=== PATIENT | female | born 1940 | race Caucasian/White ===

== ENCOUNTER 2021-08-31 01:38 | Inpatient (IN) | payer OTHER ==
[~2021-08-31] VITALS: Ht 157.5 cm; Wt 55.5 kg
[~2021-08-31 01:38] MED LIST: Aspir 8181 MG PO; CLOP75 PO; Folbee Plus Tabl5 MG PO; METO25ER PO; METO50 PO; NITR.4SL SL
[2021-08-31 02:04] LABS: BASOPHILS ABSOLUTE AUTO 0.04 K/mm3 (0.00-0.23); BASOPHILS PERCENT AUTO 0 % (0-2); EOSINOPHILS ABSOLUTE AUTO 0.07 K/mm3 (0.00-0.68); EOSINOPHILS PERCENT AUTO 1 % (0-6); Hematocrit 35.2 % (33.0-51.0); Hemoglobin 11.6 g/dL (11.5-16.0); IMMATURE GRAN ABSOLUTE AUTO 0.06 K/mm3 (0.00-0.10); IMMATURE GRAN PERCENT AUTO 1 % (0-1); LYMPHOCYTES ABSOLUTE AUTO 1.01 K/mm3 (0.84-5.20); LYMPHOCYTES PERCENT AUTO 9 % (21-46); MONOCYTES ABSOLUTE AUTO 0.88 K/mm3 (0.16-1.47); MONOCYTES PERCENT AUTO 8 % (4-13); Mean Corpuscular Volume 91 fL (80-100); Mean Platelet Volume 11.7 fL (9.1-12.4); NEUTROPHILS ABSOLUTE AUTO 9.63 K/mm3 (1.96-9.15); NEUTROPHILS PERCENT AUTO 83 % (41-73); Platelet Count 278 K/mm3 (150-400); Red Blood Cell Count 3.87 M/mm3 (3.80-5.20); White Blood Cell Count 11.69 K/mm3 (4.00-11.30)
[2021-08-31 02:25] LABS: Alanine Aminotransfer (ALT/SGP 8 U/L (12-78); Albumin, Blood 2.9 g/dL (3.4-5.0); Albumin/Globulin Ratio 0.7 (0.8-1.8); Alk Phos 70 U/L (50-136); Anion Gap 11 mmol/L (6-16); Aspartate Aminotrans (AST/SGOT 11 U/L (12-37); Bilirubin, Total 0.6 mg/dL (0.1-1.0); Blood Urea Nitrogen 18 mg/dL (8-24); CO2, Blood 26 mmol/L (21-32); Calcium, Blood 8.7 mg/dL (8.5-10.1); Chloride, Blood 98 mmol/L (98-108); Creatinine, Blood 0.64 mg/dL (0.40-1.00); Free Thyroxine 1.41 ng/dL (0.70-1.60); Globulin, Blood 4.4 g/dL (2.2-4.0); Glomerular Filtration Rate >60 (60-); Glucose, Blood 225 mg/dL (70-99); Potassium, Blood 2.9 mmol/L (3.5-5.5); Sodium, Blood 135 mmol/L (136-145); Thyroid Stimulating Hormone 0.845 uIU/mL (0.360-4.800); Total Protein, Blood 7.3 g/dL (6.4-8.2); Troponin I <0.015 ng/mL (0.000-0.040)
[2021-08-31 07:37] LABS: Influenza A, PCR NEGATIVE (NEGATIVE); Influenza B, PCR NEGATIVE (NEGATIVE); Resp Syncytial Virus, PCR NEGATIVE (NEGATIVE); SARS-Cov-2 (COVID-19) PCR, MMC NEGATIVE (NEGATIVE)
[2021-08-31 08:22] LABS: BASOPHILS ABSOLUTE AUTO 0.02 K/mm3 (0.00-0.23); BASOPHILS PERCENT AUTO 0 % (0-2); EOSINOPHILS ABSOLUTE AUTO 0.03 K/mm3 (0.00-0.68); EOSINOPHILS PERCENT AUTO 0 % (0-6); IMMATURE GRAN ABSOLUTE AUTO 0.05 K/mm3 (0.00-0.10); IMMATURE GRAN PERCENT AUTO 1 % (0-1); LYMPHOCYTES PERCENT AUTO 13 % (21-46); MONOCYTES ABSOLUTE AUTO 0.87 K/mm3 (0.16-1.47); MONOCYTES PERCENT AUTO 9 % (4-13); Mean Corpuscular HGB 29.5 pg (26.0-34.0); Mean Corpuscular HGB Conc 32.4 g/dL (31.5-36.5); Mean Corpuscular Volume 91 fL (80-100); Mean Platelet Volume 11.1 fL (9.1-12.4); NEUTROPHILS ABSOLUTE AUTO 7.99 K/mm3 (1.96-9.15); NEUTROPHILS PERCENT AUTO 78 % (41-73); Platelet Count 250 K/mm3 (150-400); RDW Coefficient Variation 12.9 % (11.7-14.2); RDW Standard Deviation 43.3 fL (35.1-46.3); Red Blood Cell Count 3.73 M/mm3 (3.80-5.20); White Blood Cell Count 10.26 K/mm3 (4.00-11.30)
[2021-08-31 08:32] LABS: Anion Gap 6 mmol/L (6-16); Blood Urea Nitrogen 18 mg/dL (8-24); Bun/Creatinine Ratio 29.9 (12.0-20.0); CO2, Blood 28 mmol/L (21-32); Calcium, Blood 8.3 mg/dL (8.5-10.1); Chloride, Blood 100 mmol/L (98-108); Glomerular Filtration Rate >60 (60-); Glucose, Blood 145 mg/dL (70-99); Potassium, Blood 3.2 mmol/L (3.5-5.5); Sodium, Blood 134 mmol/L (136-145)
--- NOTE | 2021-08-31 13:33 | NUR ---
Met with pt she was painfull and aggitated. Awaiting consult from cardiology. Called daughter back in to help with decision making. Pt struggling to follow conversation and fearful. Daughter states she has advance diretive at home they were going to work on. Reviewed polst. We agreed to wait until physicns and wedding florist present a plan of care. Dr barnes contacting cardiology one second troponin in.
[2021-08-31 15:22] LABS: Potassium, Blood 3.4 mmol/L (3.5-5.5)
--- NOTE | 2021-08-31 17:42 | NUR ---
PT SUMMARY: PT ARRIVED IN THE UNIT VIA STRETCHER FROM ED, WAS ABLE TO TRANSFER TO BED SBA VIA CANE WITH NO ISSUES, DAUGHTER AT BEDSIDE. PT WAS ALREADY SINUS RHYTHM AT 70'S UPON ARRIVAL PT DENIES CHEST PAIN, BP SYSTOLIC 130'S SATS ABOVE 95% ON RA, AFEBRILE. TROPONIN TRENDS LAST TROP 0.9, PT FOR POSS ANGIO IN AM DAUGHTER AND PT DECIDED TO PROCEED WITH THE PROCEDURE, TO START HEPARIN GTT AT 2100 SINCE PT HAD A DOSE OF ELIQUIS TODAY. PT ATE DINNER WITH NO ISSUES. OFFERED NICOTINE PATCH SINCE PT IS A CURRENT EVERY DAY SMOKER AND WAS DECLINED. PT ALERT AND ORIENTED X4, ABLE TO MAKE NEEDS KNOWN, SOMETIMES GET CONFUSED DURING DEEP CONVERSATION, MILD PORT LIONS OTHERWISE PLEASANT AND COOPERATIVE. NO OTHER ISSUES AT THIS TIME, WILL REPORT TO ONCOMING SHIFT
--- NOTE | 2021-08-31 20:35 | NUR ---
ASSUMED CARE PT ALERT AND ORIENTED. PT WAS UPSET AND DID NOT UNDERSTAND WHY HEPARIN GTT WAS GOING TO BE STARTED AT 2100, OR WHY SHE WOULD BE NPO, AND OTHER CARE REGARDING DX AND FUTURE PROCEDURE. PT REPORTS NOT "FEELING QUITE THERE" (SOME CONFUSION) AFTER NAP. PT DENIES CHEST PAIN OR SOB. VITALS ARE STABLE AND CALL LIGHT IS WITHIN REACH.
[2021-09-01 04:09] LABS: Hemoglobin 10.6 g/dL (11.5-16.0); Mean Corpuscular HGB 29.5 pg (26.0-34.0); Mean Corpuscular HGB Conc 33.1 g/dL (31.5-36.5); Mean Corpuscular Volume 89 fL (80-100); Mean Platelet Volume 11.2 fL (9.1-12.4); Platelet Count 240 K/mm3 (150-400); RDW Coefficient Variation 12.8 % (11.7-14.2); RDW Standard Deviation 42.1 fL (35.1-46.3); Red Blood Cell Count 3.59 M/mm3 (3.80-5.20)
[2021-09-01 04:30] LABS: Alanine Aminotransfer (ALT/SGP 10 U/L (12-78); Albumin, Blood 2.6 g/dL (3.4-5.0); Albumin/Globulin Ratio 0.6 (0.8-1.8); Alk Phos 65 U/L (50-136); Anion Gap 6 mmol/L (6-16); Aspartate Aminotrans (AST/SGOT 15 U/L (12-37); Bilirubin, Total 0.4 mg/dL (0.1-1.0); Blood Urea Nitrogen 13 mg/dL (8-24); Bun/Creatinine Ratio 24.2 (12.0-20.0); CO2, Blood 30 mmol/L (21-32); Calcium, Blood 8.6 mg/dL (8.5-10.1); Chloride, Blood 101 mmol/L (98-108); Creatinine, Blood 0.54 mg/dL (0.40-1.00); Globulin, Blood 4.3 g/dL (2.2-4.0); Glomerular Filtration Rate >60 (60-); Glucose, Blood 124 mg/dL (70-99); Potassium, Blood 3.2 mmol/L (3.5-5.5); Sodium, Blood 137 mmol/L (136-145); Total Protein, Blood 6.9 g/dL (6.4-8.2)
--- NOTE | 2021-09-01 05:54 | NUR ---
SHIFT SUMMARY PT IS ALERT AND ORIENTED. PT IS [place]. VITAL SIGNS ARE STABLE AND IS ON ROOM AIR WITH SATS ABOVE 92%. PT DENIES CHEST PAIN/PRESSURE. HEPARIN GTT INFUSING. PT IS ABLE TO SBA TO BSC WITH CANE. CALL LIGHT IS WITHIN REACH.
--- NOTE | 2021-09-01 06:20 | NUR ---
APPROX AT 0600 PT STARTED WITH PAIN IN LEFT SHOULDER, LEFT ARM AND BACK. PAIN MEDS WERE GIVEN AND VITALS WERE STARTED. PT WAS ON PHONE WITH DAUGHTER SAYING SHE "COULDN'T DO THE PROCEDURE" SEVERAL TIMES. THIS NURSE REPORTED SS TO CHARGE AND FURTHER INTERVENTIONS WERE PERFORMED.
--- NOTE | 2021-09-01 06:55 | NUR ---
CALLED DR ALBERTINA ORANTES PT LEFT SHOULDER, ARM, AND BACK PAIN 05/12. EKG WAS DONE. ORDERS OF MORPHINE 2.5MG X2 GIVEN NOW AND THEN IN 30 MINS IF PAIN DID NOT RESOLVE. NITRO SUBLINGUAL 0.4 AND TROP LABS.
--- NOTE | 2021-09-01 13:47 | NUR ---
PT HAD ANOTHER CHEST PAIN EPISODE THAT RADIATES TO PENG LEFT ARM 9/10 PAIN, BP SYSTOLIC AT 160'S, HRR SR AT 80'S, SATS ABOVE 93% ON RA. NITRO SL FIRST DOSE GIVEN PER PT'S REQUEST PAIN WENT DOWN TO 6, DR NIXON MADE AWARE, ORDERED IV MORPHINE 1MG Q6H PRN, NITRO PASTE 0.5G STARTED Q6HRS. PT NOW RESTING IN BED, CHEST PAIN RELIEVED OF THIS TIME, PT FOR ANGIO TOMORROW 09/02/21 AFTERNOON FULL LIQUID DIET IN AM, NPO AFTER BREAKFAST. HEPARIN GTT RUNNING AT 20U/KG/HR. WILL MONITOR
--- NOTE | 2021-09-01 18:06 | NUR ---
PT SUMMARY: SEE PREVIOUS NOTES. CHEST PAIN NOW MANAGED WITH NITRO PASTE. PT STATED CHEST PAIN IS RESOLVED BUT STILL HAS SOME PAIN RESIDUAL ON THE ARM AND ON THE BACK OFFERED PAIN MEDICINE BUT PT STATED PAIN IS MORE TOLERABLE AT THIS TIME. VITALS HRR SR 90-100'S, BP SYSTOLIC 140-160'S, SATS ABOVE 92% ON RA, AFEBRILE. PT HAS BEEN GETTING UP AMBULATING TO THE BATHROOM WITH A CANE AN ASSISTIVE DEVICE, SBA. HEPARIN GTT STILL RUNNING AT 20U/KG/HR. PT HAS POOR APPETITE, C/O GAS AND BELCHING WHICH PT STATED IS NORMAL FOR HER AT HOME. STILL ONGOING PLAN TO DO ANGIO IN AM, FULL LIQUID DIET UNTIL BREAKFAST THEN NPO AFTERWARDS UNTIL AFTER PROCEDURE, NO OTHER ISSUES REPORTED AT THIS TIME, PT ABLE TO MAKE NEEDS KNOWN, WILL REPORT TO ONCOMING SHIFT
--- NOTE | 2021-09-01 19:59 | NUR ---
ASSUMED CARE PT IS ALERT AND ORIENTED. REPORTS PAIN OF 5/10 IN BACK AND ABDOMEN. DENIES CHEST PAIN OR SOB. VITAL SIGNS ARE STABLE AND IS ON ROOM AIR WITH SATS ABOVE 92%. PT STATED THAT SHE DOES NOT WANT "MORPHINE UNLESS SHE ABSOLUTELY NEEDS IT AND ASKS FOR IT, BECAUSE IT IS VERY ADDICTING," AND "ONLY WANTS THE OXY BECAUSE THAT IS WHAT SHE HAS BEEN TAKING BEFORE." CALL LIGHT IS WITHIN REACH. WILL CONTINUE TO MONITOR.
--- NOTE | 2021-09-02 00:05 | NUR ---
PT IS HAVING LEFT SHOULDER BLADE PAIN 10/10. REQUESTED OXY. REFUSING MORPHINE.
[2021-09-02 02:08] LABS: Hematocrit 35.9 % (33.0-51.0); Mean Corpuscular HGB 29.6 pg (26.0-34.0); Mean Corpuscular HGB Conc 33.4 g/dL (31.5-36.5); Mean Corpuscular Volume 89 fL (80-100); Platelet Count 289 K/mm3 (150-400); RDW Coefficient Variation 12.7 % (11.7-14.2); RDW Standard Deviation 41.5 fL (35.1-46.3); Red Blood Cell Count 4.05 M/mm3 (3.80-5.20); White Blood Cell Count 10.95 K/mm3 (4.00-11.30)
--- NOTE | 2021-09-02 02:26 | NUR ---
AT APPROX 0130 PT HAD A FEW BEATS OF SVT AND CONVERTED TO AFIB WITH HR OF 150-160'S. DR ENG WAS CALLED AND 15MG OF CARDIZEM IV PUSH WAS ORDERED AND IF THAT DID NOT WORK TO PUT PT ON A CARDIZEM GTT. IV PUSH WAS GIVEN AND HR REMAINED ABOVE 140. CARDIZEM GTT WAS STARTED AT 5 THEN INCREASED TO 10. PT'S HR REMAINS IN AFIB AND IN THE 130'S. HEPARIN GTT IS STILL INFUSING. CHEST PAIN 5/10 IN BACK AND LEFT SHOULDER BLADE. WILL CONTINUE TO MONITOR.
[2021-09-02 02:28] LABS: Alanine Aminotransfer (ALT/SGP 10 U/L (12-78); Albumin/Globulin Ratio 0.6 (0.8-1.8); Alk Phos 73 U/L (50-136); Anion Gap 8 mmol/L (6-16); Aspartate Aminotrans (AST/SGOT 10 U/L (12-37); Bilirubin, Total 0.5 mg/dL (0.1-1.0); Blood Urea Nitrogen 10 mg/dL (8-24); Bun/Creatinine Ratio 19.4 (12.0-20.0); CO2, Blood 27 mmol/L (21-32); Chloride, Blood 99 mmol/L (98-108); Creatinine, Blood 0.52 mg/dL (0.40-1.00); Globulin, Blood 4.7 g/dL (2.2-4.0); Glomerular Filtration Rate >60 (60-); Glucose, Blood 173 mg/dL (70-99); Potassium, Blood 3.6 mmol/L (3.5-5.5); Sodium, Blood 134 mmol/L (136-145); Total Protein, Blood 7.7 g/dL (6.4-8.2)
--- NOTE | 2021-09-02 06:17 | NUR ---
SHIFT SUMMARY PT IS ALERT AND ORIENTED. PT HAD RUNS OF SVT LAST NIGHT (SEE PREVIOUS NOTES) AND CONVERTED TO AFIB, HEART RATES WERE IN 150-160'S. CARDIZEM PUSH AND GTT STARTED, GTT STOPPED AT 0600, CONVERTED TO SR AND HR IN THE 80'S. CHEST PAIN WAS 10/10 AT BEGINING OF SHIFT REFUSED MORPHINE AND FURTHER INTO SHIFT REQUESTED MED. HEPARIN GTT INFUSING. PT IS ON ROOM AIR WITH SATS ABOVE 92%. SHE IS ABLE TO GET UP SBA TO BSC. CALL LIGHT IS WITHIN REACH.
--- NOTE | 2021-09-02 11:37 | NUR ---
PT HAD SCANT AMOUNT OF BLOOD IN THE TOILET PAPER AFTER WIPING AT THE BEDSIDE COMMODE, PT WAS ASSESSED AND HAS SIGNIFICANT HEMORRHOIDS NOT ACTIVELY BLEEDING, HAS SCANT AMOUNT OF BLOOD IN THE ATTENDS WELL, DR ARDON MADE AWARE DUE TO PT BEING ON HEPARIN GTT ADVISED TO MONITOR PT FOR NOW. PT'S DAUGHTER NOW IN THE ROOM AWAITING FOR PT'S ANGIO PROCEDURE TODAY
--- NOTE | 2021-09-02 17:52 | NUR ---
PT SUMMARY: PT POST ANGIO TODAY WITH RIGHT BRACHIAL SITE, SITE CDI WITH ZACK DRESSING IN PLACE, NO HEMATOMA OR BLEEDING NOTED. VITALS REMAINED STABLE. DR NIXON WAS IN THE ROOM DISCUSSED PLAN OF CARE WITH THE DAUGHTER AND PT, PT HAS COMPLICATED DISEASED VESSELS THAT REQUIRES FURTHER EVAL AND INTERVENTION, GIVEN 2 OPTIONS TO MEDICALLY TREAT FOR COMFORT OR COBRA TRANSFER. PT AND DAUGHTER TO DISCUSS AND DECIDE IN AM. HEPARIN GTT TO RESUME AT 2200. NO OTHER ISSUES AT THIS TIME, PT GOT UP IN THE COMMODE WITH NO ISSUES. WILL REPORT TO ONCOMING SHIFT
[2021-09-03 04:25] LABS: Hematocrit 33.7 % (33.0-51.0); Hemoglobin 11.1 g/dL (11.5-16.0); Mean Corpuscular HGB 29.4 pg (26.0-34.0); Mean Corpuscular HGB Conc 32.9 g/dL (31.5-36.5); Mean Corpuscular Volume 89 fL (80-100); Mean Platelet Volume 11.5 fL (9.1-12.4); Platelet Count 267 K/mm3 (150-400); RDW Coefficient Variation 12.9 % (11.7-14.2); RDW Standard Deviation 42.4 fL (35.1-46.3); Red Blood Cell Count 3.78 M/mm3 (3.80-5.20); White Blood Cell Count 8.62 K/mm3 (4.00-11.30)
[2021-09-03 05:00] LABS: Alanine Aminotransfer (ALT/SGP 9 U/L (12-78); Albumin, Blood 2.7 g/dL (3.4-5.0); Albumin/Globulin Ratio 0.7 (0.8-1.8); Alk Phos 68 U/L (50-136); Anion Gap 9 mmol/L (6-16); Aspartate Aminotrans (AST/SGOT 14 U/L (12-37); Bilirubin, Total 0.4 mg/dL (0.1-1.0); Blood Urea Nitrogen 13 mg/dL (8-24); Bun/Creatinine Ratio 21.4 (12.0-20.0); CO2, Blood 26 mmol/L (21-32); Calcium, Blood 8.6 mg/dL (8.5-10.1); Chloride, Blood 102 mmol/L (98-108); Creatinine, Blood 0.61 mg/dL (0.40-1.00); Globulin, Blood 3.7 g/dL (2.2-4.0); Glomerular Filtration Rate >60 (60-); Glucose, Blood 111 mg/dL (70-99); Potassium, Blood 3.4 mmol/L (3.5-5.5); Sodium, Blood 137 mmol/L (136-145); Total Protein, Blood 6.4 g/dL (6.4-8.2)
--- NOTE | 2021-09-03 06:03 | NUR ---
SHIFT SUMMARY PT IS ALERT AND ORIENTED. DENIES CHEST PAIN OR PRESSURE. VITALS ARE STABLE AND IS ON ROOM AIR. HEPARIN GTT IS INFUSING. RIGHT BRACHIAL SITE IS WNL AND TEGADERM IS IN PLACE WITH ARMBOARD. PT IS ABLE TO GET UP TO THE BSC BY SBA. REPORTS NO BM. CALL LIGHT IS WITHIN REACH.
--- NOTE | 2021-09-03 06:18 | NUR ---
PT REQUESTING TYLENOL. CALLED DR ENG FOR ORDER. ORDER ENTERED IN EMAR.
--- NOTE | 2021-09-03 10:48 | NUR ---
PALLIATIVE CARE IN TO SEE THE PATIENT AT THIS TIME.
[2021-09-03] MEDS ORDERED: Isosorbide Mono30 MG PO (11:11)
[2021-09-03] MEDS ORDERED: MORP20L SL (11:32)
[2021-09-03] MEDS ORDERED: HYOS.125 PO (11:38)
[2021-09-03] MEDS ORDERED: LORA.5 PO (11:40)
--- NOTE | 2021-09-03 11:58 | NUR ---
Spoke with Primary RN Maritza, Dr Baltazar, and discussed case. Pt does not wishe to have surgical interventions and has significant CAD and AAA. Pt and family may benefit from discussion regarding hospice. Pt resting in bed upon arrival. Offered threapeutic listening as Pt expresses her wishes to focus on comfort at this point in her life. Discussed hospice as an option and educated on hospice philosophy. Pt confirms her wishes for hospice. Pt's daughter arrives to hospital. Relayed Pt's wishes regarding hospice with daughter in agreement. Listened as Pt reports becoming too fatigued after ambulating approximately 10 feet and then needs to rest. Pt requires the use of FWW and standbye assistance with ambulation. Pt also requires assistance with bathing and dressing. Pt also requires assistance with getting up out of bed. Pt reports having a poor appetite. Discussed hospice agencies to choose from. Pt and family request [facility]. No other concerns reported at this time. Spoke with [facility] and relayed request. Spoke with Dr Baltazar. Dr Baltazar will write prescription for Roxanol when Pt is D/C home. PPS 40% ADLs 4/6 Palliative Care will remain available.
--- NOTE | 2021-09-03 12:17 | NUR ---
Received referral from Palliative Care Nurse (Brett Driscoll) on 09/03/2021. Patient is to discharge today- 09/03/2021 with orders for hospice and family elected [facility]. Gathered supporting documentation for referral (face sheet, labs, imaging, progress notes, palliative care note, and H&P) and sent to [facility] Intake PRINCIPAL JAVA DEVELOPER (Paola Collazo) for review of hospice appropriateness and ability to accept patient onto service post discharge. As patient already has discharge orders entered, this designer writer provided patient's daughter (Vanesa Chavez) with prescriptions for morphine 20mg/mL #30mL (0.25mL - 1mL PO/SL Q1H PRN SOB/pain), lorazepam 0.5mg #20 (1 - 2 PO Q4H PRN anxiety), and hysoscyamine 0.125mg SL tablets #30 (1 SL Q2H PRN secretions). Explained to patient and daughter that as patient was not yet admitted to hospice services the above prescriptions would need to be billed to patient's insurance and any copays associated with the above prescriptions would need to be paid for by patient and/or patient's family. Patient will be scheduled for consult with possible admission onto hospice on - 09/05/2021. Patient and daughter verbalized understanding of this. No further interventions required. Maude Marcelino Referral Liaison
--- NOTE | 2021-09-03 12:32 | NUR ---
DISCHARGE PT AND HER DAUGHTER WERE PROVIDED WITH WRITTEN AND VERBAL DISCHARGE INSTRUCTIONS. THEY REPORTED UNDERSTANDING. HOSPICE ARRANGED WITH [facility] PANG. PAIN MANAGED AT TIME OF DISCHARGE. PRESCRIPTIONS PROVIDED. PT ESCORTED OUT IN [facility].
== END 2021-09-03 12:24 | disposition hospice, home (50) | DRG 282 ==
LOC: ER 01:38 → PCU 04:08 → ERHOLD 04:08 → PCU 14:17
PROVIDERS: Family Medicine; Internal Medicine; Student in an Organized Health Care Education/Training Program; ADMIT Internal Medicine
PROC: 4A023N7 Measurement of Cardiac Sampling and Pressure, Left Heart, Percutaneous Approach (ICD-10-PCS; principal; 2021-09-02)
PROC: B2111ZZ Fluoroscopy of Multiple Coronary Arteries using Low Osmolar Contrast (ICD-10-PCS; 2021-09-02)
DX: I21.4 Non-ST elevation (NSTEMI) myocardial infarction (principal); Z20.822 Contact with and (suspected) exposure to COVID-19; I48.91 Unspecified atrial fibrillation; I10 Essential (primary) hypertension; E87.6 Hypokalemia; E11.51 Type 2 diabetes mellitus with diabetic peripheral angiopathy without gangrene; I25.10 Atherosclerotic heart disease of native coronary artery without angina pectoris; I25.2 Old myocardial infarction; Z87.891 Personal history of nicotine dependence; Z86.16 Personal history of COVID-19; Z71.6 Tobacco abuse counseling; Z88.8 Allergy status to other drugs, medicaments and biological substances; Z91.013 Allergy to seafood; Z79.02 Long term (current) use of antithrombotics/antiplatelets; Z79.82 Long term (current) use of aspirin; Z79.899 Other long term (current) drug therapy
CPT/HCPCS: 0241U; 36415; 71045; 76937; 80048; 80051; 80053; 82947; 83735; 83880; 84439; 84443; 84484; 85025; 85027; 85347; 85730; 93005; 93010; 93306; 93454; 96365; 96366; 96375; 99152; 99153; 99285-25; A9270; C1769; C1894; J1200; J1644; J1720; J2250; J2270; J3010; J3480; J7030; J7050; Q9967